=== PATIENT | male | born 1990 | race African-American/Black ===

== ENCOUNTER 2018-06-04 15:30 | Emergency (ER) | payer OTHER ==
[~2018-06-04] VITALS: Ht 180.3 cm; Wt 81.7 kg
[2018-06-04 16:01] VITALS: BP 154/89
[2018-06-04] MEDS ORDERED: DIAZEPAM 5 MG TABLET ONE (16:51)
[2018-06-04] MEDS ORDERED: KETOROLAC 30 MG/1 ML ONE (16:51)
[2018-06-04] MEDS ORDERED: HYDROcodone/APAP 5/325 TABLET ONE (16:51)
[2018-06-04] MEDS ORDERED: HYDROcodone/APAP 5/325 TABLET PO ONE (17:00)
[2018-06-04] MEDS ORDERED: KETOROLAC 30 MG/1 ML IM ONE (17:00)
[2018-06-04] MEDS ORDERED: DIAZEPAM 5 MG TABLET PO ONE (17:00)
== END 2018-06-04 17:43 | disposition home or self-care (01) ==
LOC: ED 17:15
DX: S39.012A Strain of muscle, fascia and tendon of lower back, initial encounter (principal); M62.830 Muscle spasm of back; F17.200 Nicotine dependence, unspecified, uncomplicated; X58.XXXA Exposure to other specified factors, initial encounter; Y93.89 Activity, other specified; Y99.8 Other external cause status; Y92.69 Other specified industrial and construction area as the place of occurrence of the external cause
CPT/HCPCS: 72110; 96372; 99284; J1885